=== PATIENT | male | born 1960 | race African-American/Black ===

== ENCOUNTER 2018-06-18 15:15 | Observation (INO) | payer OTHER ==
[2018-06-18 17:24] LABS: #Lymphocytes 1.7 thou/uL (1.20-3.40); #Monocytes 0.5 thou/uL (0.11-0.59); #Neutrophils 3.2 thou/uL (1.40-6.50); %Basophils 0.6 % (0.0-1.0); %Eosinophils 0.7 % (0.0-10.0); %Lymphocytes 30.5 % (21.0-51.0); %Monocytes 9.5 % (0.0-10.0); %Neutrophils 58.8 % (42.0-75.0); Mean Corpuscular HGB CONC 33.2 g/dL (32.0-36.0); Mean Corpuscular Volume 87.3 fL (78.0-98.0); Mean Platelet Volume 7.7 fL (7.4-10.4); Platelet Count 153 thou/uL (130-400); RBC Distribution Width 11.7 % (11.5-14.5); Red Blood Cell (RBC) Count 3.46 mill/uL (4.70-6.10); White Blood Cell (WBC) Count 5.5 thou/uL (4.8-10.8)
[2018-06-18 17:43] LABS: ALT (SGPT) 20 U/L (8-55); AST (SGOT) 22 U/L (5-34); Albumin 3.2 g/dL (3.5-5.0); Alkaline Phosphatase 68 U/L (40-150); Anion Gap 10 mmol/L (10-20); BUN (Urea Nitrogen) 8 mg/dL (8.4-25.7); Bilirubin, Total 0.3 mg/dL (0.2-1.2); Calc. Creatinine Clearance 0 mL/min (70-130); Calcium 7.2 mg/dL (7.8-10.44); Carbon Dioxide 23 mmol/L (22-29); Chloride 109 mmol/L (98-107); Estimated GFR-MDRD Greater than 90; Globulin 2.3 g/dL (2.4-3.5); Glucose 81 mg/dL (70-105); Protein, Total 5.5 g/dL (6.0-8.3); Sodium 139 mmol/L (136-145)
[2018-06-18 17:59] LABS: Potassium 2.7 mmol/L (3.5-5.1)
[2018-06-18] MEDS ORDERED: Potassium Chloride 20 MEQ TAB ONE (18:16)
[2018-06-18 18:47] VITALS: BMI 39.0
[2018-06-18] MEDS ORDERED: Dextrose 5% in Water 1,000 ML IV PRN (20:16)
[2018-06-18] MEDS ORDERED: Dextrose 50% Abboject 50 ML SYRINGE SLOW IVP PRN (20:16)
--- NOTE | 2018-06-18 21:01 | HP ---
CHIEF COMPLAINT: Back pain. HISTORY OF PRESENT ILLNESS: This patient is a 57-year-old male who has two significant pieces of rel evant history. One is that the patient had an L4-L5 laminectomy with foraminotomy performed by Dr. Gloria lagos at this facility in February. 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 They did a biopsy and determined that it was benign. Therefore, they did not remove it, but simply gave h im some steroids and it actually shrink. Subsequent to that, it started extending down into the left iliac area. During that time, the patient reported he was having significant problems and discomfor t related to this. He again had some steroids and the tumor improved and he stopped having pain in 2 005. The patient reports that 2 weeks ago, he started having a fairly gradual onset of pain in his l eft lower back area. On Wednesday, it became much more severe. He has a particular area that he can locate in the left lumbar area. He has gone to [facility] on 3 separate occasions only to get a treatment with pain medication and discharged. Patient reports the pain becomes so severe that he is unable to walk. He is actually using urinal so he does not have to try to get up to go to the bathroom. He says he has been avoiding any food or drink because he does not want to have a bow el movement and try to get up to the bathroom for that. He reports for his last stay at [facility], he essentially convinced them to keep him because his blood pressure was elevated. He stayed th [facility] for about 12 hours and was discharged to follow up with a spray ii painter. He states he did go see the spray ii painter and had a steroid injection which helped him for about 3 hours and then his symptoms recurred. He was then referred back to Dr. Snyder. He reached out to Dr. Snyder's office, but has not yet been able to establish any type of follow up there. Patient describes his pain as a lightning strike type sensation down the left lower extremity with any attemp ts at weightbearing. He also reports that he has episodes of pain which caused some spasm in the lef t lower extremity. He reports no loss of bowel or bladder function. He does report some occasional loss of sensation in his left lower extremity, but it is variable. He denies any loss of motor funct ion, but states that there are at times when he simply cannot move his left leg because it just feels like it will not move, but otherwise has good motor sensation or motor control otherwise. The patient reports that he has had a CT scan of the chest, abdomen, and pelvis at [facility] as well as an MRI of his lumbar spine. He was told that there was nothing on those that would help acc ount for his current symptomatology. REVIEW OF SYSTEMS: Negative through 10 systems other than those things mentioned in the history of p resent illness with the exception that he does have some neuropathy in both of his great toes. PAST MEDICAL HISTORY: Diabetes, hypertension. PAST SURGICAL HISTORY: Left elbow surgery, and the above-mentioned abdominal surgery for the benign tumor that was ultimately not removed. FAMILY HISTORY: Brother and father at 57 with an DE. Mother had a CVA at 68. There was also a history of hypertension and diabetes. SOCIAL HISTORY: The patient is a nonsmoker, nondrinker, nondrug user. He is single. 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 He is a F[employer] and his surrogate decision maker would be his sister Sharon. CURRENT MEDICATIONS: Lantus 80 subcu b.i.d., metoprolol 100 mg p.o. daily, hydrochlorothiazide 12.5 mg p.o. daily and metformin 500 mg p.o. b.i.d. PHYSICAL EXAMINATION: VITAL SIGNS: BP 177/80, pulse 70, respirations 19, temperature 98.4, O2 sats 96% on room air. GENERAL APPEARANCE: Age appropriate male, slightly obese. He is in no distress. He is awake, alert , oriented, pleasant, cooperative and articulate. HEENT: PERRL. No OP lesions. NECK: Supple and symmetric. HEART: Regular rate and rhythm without murmurs, gallops or rubs. LUNGS: Clear to auscultation bilaterally with good chest wall expansion and air exchange. ABDOMEN: Soft, nontender, nondistended, positive bowel sounds, no masses, no organomegaly. EXTREMITIES: Warm and dry without any edema. He has good peripheral pulses. MUSCULOSKELETAL: Reveals basically good normal musculature development. He has tenderness to palpat ion in his left leg from the foot all the way up. He has no inflammation or palpable masses that are warmth. He has a pain in his left lumbar area with attempt at a straight leg raise, but does not ap pear to have pain down the leg. He has tenderness to palpation in the left lumbosacral area which ca uses him to cry tears even when he is palpating it himself. SKIN: Only notable for the incisional scars in the midline of the lower abdomen and at the left elbo w. LABORATORY DATA: White count 5.5, hemoglobin 10.0, platelets 153. Sodium 139, potassium 2.7, chlori de 109, BUN 8, creatinine 0.66, glucose is 124, calcium 7.4, AST 22, ALT 20, albumin 3.2. IMPRESSION AND PLAN: 1. Pain syndrome that seems to be affecting the patient's left lumbosacral area and his left lower e xtremity. He indicates that he has had a CT scan of the chest, abdomen, and pelvis and MRI of the femi mbar spine which failed to reveal any pathology to account for these symptoms. He has also recently had an injection from a spray ii painter, which he said helped him for about 3 hours. At t his point, need to try to get some records together. The patient appears to be profoundly debilitate d from this and lives alone. Therefore, he was kept in observation. We will get physical therapy to work with him as much as he can potentially tolerate. May need to have the neurosurgeons evaluate h im once we are able to obtain some adequate records. At this point, it is very hard to account for w hat could potentially be causing his symptoms with that type of negative imaging. 2. Hypertension. Continue his usual home medications. 3. Diabetes mellitus. We will keep him on a diabetic diet and continue his usual medication and sli ding scale as needed.
[2018-06-18] MEDS: Morphine 4 MG/ML VIAL SLOW IVP PRN (21:05)
[2018-06-18] MEDS: Amlodipine 5 MG TAB PO SCH (21:17)
[2018-06-18] MEDS ORDERED: traMADol HCl 50 MG TAB PO PRN (22:46)
[2018-06-19] MEDS: Gabapentin 300 MG CAP PO SCH ×4 (00:30→17:49)
[2018-06-19] MEDS: hydrALAZINE 20 MG/ML VIAL SLOW IVP PRN ×3 (00:32→11:19)
[2018-06-19] MEDS: Morphine 4 MG/ML VIAL SLOW IVP PRN ×6 (01:29→21:29)
[2018-06-19 05:31] LABS: Anion Gap 12 mmol/L (10-20); BUN (Urea Nitrogen) 10 mg/dL (8.4-25.7); Calc. Creatinine Clearance 172 mL/min (70-130); Calcium 9.5 mg/dL (7.8-10.44); Carbon Dioxide 29 mmol/L (22-29); Chloride 98 mmol/L (98-107); Estimated GFR-MDRD Greater than 90; Glucose 199 mg/dL (70-105); Potassium 3.5 mmol/L (3.5-5.1); Sodium 135 mmol/L (136-145)
[2018-06-19] MEDS: cloNIDine 0.1 MG TAB PO PRN (05:47)
[2018-06-19] MEDS: Diazepam 5 MG TAB PO PRN ×3 (05:48→21:28)
[2018-06-19] MEDS: HumaLOG 300 UNITS/3 ML VIAL SC PRN ×2 (05:48→11:29)
[2018-06-19] MEDS: Losartan/Hydrochlorothiazide 100 mg/25 mg Tablet PO SCH (10:17)
[2018-06-19] MEDS: metFORMIN XR 500 MG TAB PO SCH ×2 (10:18→16:46)
--- NOTE | 2018-06-19 10:29 | PDOC.EVN ---
Event Note - Event Note Event Note: Records were obtained from [facility]. The "abdominal mass" he described was referred to as retroperitoneal fibrosis. He says that is what they diagnosed. The wording on the MRI report is a little unclear, but it does not appear that there is any major pathology in the L-spine.
[2018-06-19] MEDS ORDERED: Amlodipine 5 MG TAB PO SCH ×2 (14:00→21:00)
--- NOTE | 2018-06-19 15:13 | PRG ---
DATE OF SERVICE: 06/19/2018 SUBJECTIVE: The patient reports that he continues to have pain in his leg and lower back area, prima rily affecting the leg. He has had various complaints of feeling like he has lost sensation, but at the same time having pain and normal touch. He reports having episodes of spasm in the leg every 15- 20 minutes. He had a video that he had me watch from his phone indicating one of these episodes. Th ere did appear to be one episode of fasciculation in the gastrocnemius area on the video. He states that after he gets Valium and morphine, he is able to move the leg again normally. OBJECTIVE: VITAL SIGNS: Temperature is 98.2, pulse 84, respirations 16, O2 sat is 97% on room air. Blood press ure has been variable between 165/93 up to 202/122. GENERAL: Obese, age-appropriate male. He appears to be generally uncomfortable with any attempts at palpating his leg or trying to move the leg. The patient cries and yells out frequently. This afte rnyolette, I was able to observe physical therapy attempts to get the patient up. He essentially came up right primarily on his right leg and started yelling again and went back down on the bed. CARDIOVASCULAR: Regular rate and rhythm without murmurs. LUNGS: Clear. NEUROLOGICAL: The patient appears to have normal sensation to touch, although maybe hypersensitive. He has a normal muscle tone. He appears to have adequate strength. He can raise the leg and has go od flexion at the ankle with a fairly good peripheral strength, although any attempts at movement or exam seems to elucidate pain for him. With physical therapy, he was able to fully flex at the hip an d grab his left knee and pull it to his chest. IMPRESSION AND PLAN: 1. Left lumbosacral area pain with left lower extremity pain, etiology is unclear. The patient has a history of lumbar spine surgery with Dr. Snyder. I was able to get the reports of the MRI obtain ed at [facility] where he had no significant findings, although the wording was slightly vague. It does not appear there is any major pathology affecting the lumbar spine. The patient's symptoms seem to be extreme, and he has become very angry with all of this here at this point. I have discuss ed the case with Nelson with the Neurosurgery team this morning. They were scrubbing into the case a nd will see the patient at some point today. At this point, I have no further ideas as to how to add ress the patient's symptoms given the negative MRI, negative CT chest, abdomen, and pelvis at [facility], some potential inconsistency in his exam. 2. History of retroperitoneal fibrosis. The patient reports he has had no real issues with that sin ce 2004. On researching this a little bit it appears that the significant hypertension is common in patients that have a peritoneal fibrosis. Anatomically, it is unclear to me that this could be causi ng any of his symptoms, and it appears that a CT scan of the abdomen and pelvis would have likely fou nd some issues with that had that been the case. 3. Hypertension. The patient's blood pressure has been highly variable. It was noted to be elevate d at the [facility], and he was admitted there based on their records as well. I will add additional Norvasc to him, but he is already on beta blockers, diuretics, ARB, and calcium channe l toni. He has a p.r.n. hydralazine ordered as well. 4. Diabetes mellitus. The patient had not been eating well, per his report. He has some empty food containers within the room, so he clearly is eating somewhat here. However, at this point, keeping him on a sliding scale insulin along with his Glucophage. 5. The patient has been quite angry with his situation here. He has indicated that he wants to file formal complaints. At this point, I am not completely clear of what his complaints are other than n ot getting immediate response to the Neurosurgery consult or our ability to give him more specific an swers as to what is going on with his current situation. Neurosurgery is actually here now to see th e patient. They have indicated that they have seen the patient in their office previously with some similar-type symptoms. In the meantime, we will continue with further pain management and Valium for spasms and anxiety until we can come up with..
[2018-06-19] MEDS ORDERED: Enoxaparin Sodium 40 MG/0.4 ML SYRINGE SC SCH (17:45)
[2018-06-19] MEDS ORDERED: Rosuvastatin 20 MG TAB PO SCH (21:00)
[2018-06-19] MEDS: Amlodipine 5 MG TAB PO SCH (21:28)
--- NOTE | 2018-06-19 22:23 | CON ---
DATE OF CONSULTATION: 06/19/2018 This is a 30-minute initial patient evaluation in which greater than 50% of the exam was spent counse led and coordinating patient's care. Remainder of the exam was spent in review of patient's medical records and appropriate imaging studies. CHIEF COMPLAINT: Severe low back pain with left hip and left lower extremity pain. HISTORY OF PRESENT ILLNESS: Mr. Hill is a 57-year-old male who presents to [facility] for the above complaints. Apparently, the patient underwent a left L4-L5 hemilaminotomy and foraminotom y in 11/[address] Snyder. The patient did well postoperatively, but had return of symptoms sev eral weeks postop including bilateral lower extremity symptoms worsen the left than the right. At th is time, he only complains of left lower extremity pain. He states this has been so severe over the past 6 days, he has been unable to get out of bed. He has also been [facility] times in the past 2 weeks. He did undergo an MRI of the lumbar spine on 06/15/2018. It go s appear to be a disk bulge at the L5-S1, but does not appear to be significantly compressive. Curre ntly, the patient appears to be in severe pain with movement. He describes a trigger point area of s evere low back pain in the left paralumbar region. He also states he has been diagnosed with diabeti c peripheral neuropathy and the numbness, tingling, and burning into the lower extremity is also kamron re. He states it is also debilitating and he is unable to live at home at this time. PHYSICAL EXAMINATION: The patient is awake and alert. His pain appears to be somewhat out of propor tion to the exam. He does have full strength in the right lower extremity and diffuse give-way weakn ess throughout the left lower extremity; however, when distracted, does appear to have full strength in the left lower extremity. He has intact sensation to light touch, although appears to have signif icant hyperesthesia to touch throughout the entire left lower extremity. Gait was not tested. He mendoza s full strength in the bilateral upper extremities and no worrisome myelopathic features on exam. He also has severe tenderness to palpation in a left paraspinal musculature. The patient has a well-he aled lower lumbar incision. IMPRESSION AND DIAGNOSES: 1. Chronic low back with nondermatomal left lower extremity symptoms. 2. History of left L4-L5 hemilaminotomy and foraminotomy in 11/[address] Snyder. PLAN: I have discussed the patient's case and imaging with Dr. Felipe. At this time, it does not ap pear that the patient needs any type of neurosurgical intervention. We just continued physical thera py as well as pain management for the patient may even benefit from a repeat epidural steroid injecti on. I will also let Dr. Snyder and Edel Horn know about the patient as he is a previous patien t there and they will be able to weigh in on appropriate next step in treatment. I have discussed al l this with the patient in detail and let him know that it is fine, there is no emergent neurosurgica l intervention that is required. This is certainly good news. He states he does not want to undergo surgery again. Ample opportunity was given to the patient to discuss his questions and concerns and again we will have Dr. Snyder and Edel follow up tomorrow. Please call with any changes in pat farzadmary ann's neurologic status.
[2018-06-20] MEDS: Gabapentin 300 MG CAP PO SCH ×4 (01:11→18:05)
[2018-06-20] MEDS: cloNIDine 0.1 MG TAB PO PRN ×2 (04:53→11:41)
[2018-06-20] MEDS: Morphine 4 MG/ML VIAL SLOW IVP PRN ×2 (04:53→08:54)
[2018-06-20 05:37] LABS: CRP (Inflammatory) 1.35 mg/dL (= or < 0.5)
[2018-06-20] MEDS: Losartan/Hydrochlorothiazide 100 mg/25 mg Tablet PO SCH (08:54)
[2018-06-20] MEDS: metFORMIN XR 500 MG TAB PO SCH ×2 (08:54→18:05)
[2018-06-20] MEDS ORDERED: Diazepam 5 MG TAB PO PRN (10:22)
[2018-06-20] MEDS: HYDROcodone/Acetaminophen 10/325 mg Tablet PO PRN ×2 (13:51→20:00)
[2018-06-20] MEDS: Insulin Glargine 40 UNITS in Pre-Filled Syringe 1 EACH SC SCH (20:02)
[2018-06-20] MEDS: HumaLOG 300 UNITS/3 ML VIAL SC PRN (20:02)
[2018-06-20] MEDS ORDERED: Amlodipine 10 MG TAB PO SCH (21:00)
--- NOTE | 2018-06-20 23:10 | PDOC.PN ---
- Subjective Encounter Start Date: 06/20/18 Encounter Start Time: 09:30 Continues to have pain in the leg, but slightly better. Still having the spasms. Convinced it is sciatica. - Objective Resuscitation Status: Resuscitation Status FULL:Full Resuscitation Vital Signs & Weight: Vital Signs (12 hours) Temp Pulse Resp BP BP BP Pulse Ox 06/20/18 20:00 97.8 F 91 16 150/90 H 150/91 H 95 06/20/18 16:57 98.0 F 82 16 145/82 H 94 L 06/20/18 11:41 176/100 H 06/20/18 11:37 97.8 F 80 16 176/100 H 92 L Weight Weight 280 lb I&O: 06/19/18 06/20/18 06/21/18 06:59 06:59 06:59 Intake Total 890 960 960 Output Total 750 Balance 140 960 960 Result Diagrams: 06/18/18 17:14 06/19/18 03:43 Additional Labs: Accuchecks 06/20/18 06/20/18 06/20/18 20:02 16:55 11:31 POC Glucose 374 H 291 H 234 H 06/20/18 04:31 POC Glucose 157 H Phys Exam - Physical Examination Still has episodes of pain and spasm. Wimpers and cries. Respiratory: no wheezing Cardiovascular: RRR, no significant murmur Gastrointestinal: soft TTP of the left leg diffusely. Dx/Plan (1) Pain in left leg Code(s): M79.605 - PAIN IN LEFT LEG Status: Acute (2) Lumbosacral pain Code(s): M54.5 - LOW BACK PAIN Status: Acute - Plan * Had a negative MRI and no indication for surgery by Neurosurg. Recommended continued PT. Discussed options. Only thing I can offer is steroids. Will likely help, but will raise the glucose levels and likely the BP. He is willing to try steroids. * Discussed the need to find a disposition option. Try oral pain management.
[2018-06-21] MEDS: Gabapentin 300 MG CAP PO SCH ×4 (00:08→17:27)
[2018-06-21] MEDS: HumaLOG 300 UNITS/3 ML VIAL SC PRN ×2 (06:31→11:54)
[2018-06-21] MEDS: Losartan/Hydrochlorothiazide 100 mg/25 mg Tablet PO SCH (08:56)
[2018-06-21] MEDS: Insulin Glargine 40 UNITS in Pre-Filled Syringe 1 EACH SC SCH (08:56)
[2018-06-21] MEDS: HYDROcodone/Acetaminophen 10/325 mg Tablet PO PRN (08:56)
[2018-06-21] MEDS: metFORMIN XR 500 MG TAB PO SCH ×2 (08:56→17:27)
[2018-06-21] MEDS ORDERED: HumaLOG 300 UNITS/3 ML VIAL SC PRN (13:34)
[2018-06-21] MEDS: Morphine 4 MG/ML VIAL SLOW IVP PRN (14:03)
[2018-06-21 16:16] VITALS: BP 136/81; TEMP 97.7
== END 2018-06-21 17:41 | disposition home or self-care (01) ==
LOC: ERS 15:15 → T4-A 17:17
PROVIDERS: ADMIT Internal Medicine; ATTEND Internal Medicine
DX: G89.29 Other chronic pain (principal); M54.5 Low back pain; M79.605 Pain in left leg; N13.5 Crossing vessel and stricture of ureter without hydronephrosis; I10 Essential (primary) hypertension; E11.42 Type 2 diabetes mellitus with diabetic polyneuropathy; Z79.4 Long term (current) use of insulin; Z79.52 Long term (current) use of systemic steroids; Z79.899 Other long term (current) drug therapy; Z88.5 Allergy status to narcotic agent; Z88.8 Allergy status to other drugs, medicaments and biological substances; Z98.890 Other specified postprocedural states
CPT/HCPCS: 36415; 36416; 80048; 80053; 84075; 85025; 85652; 86140; 96361; 96372; 96374; 96375; 96376; G0378; G8978-GP-CI; G8979-GP-CH; J0360; J1650; J2270; J2920